=== PATIENT | female | born 1975 | race Caucasian/White ===

== ENCOUNTER 2017-02-04 20:41 | Emergency (ER) | payer SELFPAY ==
[~2017-02-04] VITALS: Ht 172.7 cm; Wt 80.7 kg
[2017-02-04 21:35] LABS: HEMATOCRIT 43.1 % (36.0-46.0); MCH 30.9 PG (29.0-34.0); MCHC 33.9 G/DL (30.0-36.0); MCV 91.3 FL (83-99); MEAN PLAT.VOLUME 10.7 uM^3 (9.5-12.4); PLATELET COUNT 213 K/uL (156-360); RBC DIS.WIDTH-CV 11.9 % (11.8-14.6); RBC DIS.WIDTH-SD 39.8 % (39-53); RED BLOOD COUNT 4.72 M/uL (3.80-5.20); WHITE BLOOD COUNT 4.3 K/uL (4.1-10.2)
[2017-02-04 21:35] LABS: ADD MIUA? YES; BILIRUBIN NEGATIVE; BLOOD NEGATIVE; COLOR YELLOW ((YELLOW)); GLUCOSE (STRIP) NEGATIVE; KETONES NEGATIVE; LEUKOCYTES LARGE; NITRITE NEGATIVE; PROTEIN (STRIP) NEGATIVE; SPECIFIC GRAVITY 1.018 (1.000-1.030)
[2017-02-04 21:44] LABS: CHLORIDE 106 mEq/L (99-109); POTASSIUM 4.1 mEq/L (3.7-5.4); SODIUM 143 mEq/L (136-147)
[2017-02-04 21:47] LABS: GLUCOSE 97 mg/dL (70-99)
[2017-02-04 21:48] LABS: ANION GAP 13 MEQ/L (2-14); TOTAL BILIRUBIN 0.5 mg/dL (0.0-1.0)
[2017-02-04 21:48] LABS: BACTERIA RARE /HPF; EPITHELIAL CELLS 4+ /HPF; MUCUS TRACE /LPF; RED BLOOD CELLS 0-5 /HPF (0-5); UCUL ADDED? YES
[2017-02-04 21:50] LABS: ALKALINE PHOSPHATASE 75 IU/L (3-129); GFR ESTIMATE (CALCULATED) > 59 mL/min/
[2017-02-04 21:51] LABS: UREA NITROGEN (BUN) 10 mg/dL (9-23)
[2017-02-04 22:00] LABS: QUANTITATIVE HCG < 4.0 MIU/ML
[2017-02-04] MEDS ORDERED: KEFLEX500 MG PO (23:42)
[2017-02-04 23:50] VITALS: BP 141/89
== END 2017-02-04 23:45 | disposition left against medical advice (07) ==
LOC: EDBD 20:41 → EME 20:41
DX: R10.2 Pelvic and perineal pain (principal); Z53.20 Procedure and treatment not carried out because of patient's decision for unspecified reasons
CPT/HCPCS: 76856; 80053; 81003; 84702; 85027; 87086; 99281; 99285; J1200; J1885; J2270; J2405; J7030